=== PATIENT | male | born 1965 | race Caucasian/White ===

== ENCOUNTER 2020-12-25 11:44 | Emergency (ER) | payer MEDICARE, OTHER ==
[~2020-12-25] VITALS: Ht 188 cm; Wt 70.0 kg
[2020-12-25 11:53] VITALS: BP 112/76
[2020-12-25] MEDS ORDERED: HYDR-3972 PO (13:00)
[2020-12-25] MEDS ORDERED: ketorolac trometh. 30mg/ml inj. IM ONE (13:30)
--- NOTE | 2020-12-25 13:30 | NUR ---
Informed by Tech, pt. became verbally abusive when tech came in room to give crutch teaching.
== END 2020-12-25 13:46 | disposition home or self-care (01) ==
LOC: ER 11:45
DX: S93.401A Sprain of unspecified ligament of right ankle, initial encounter (principal); M79.671 Pain in right foot; M25.571 Pain in right ankle and joints of right foot; F15.90 Other stimulant use, unspecified, uncomplicated; Z59.00 Homelessness unspecified; Z56.0 Unemployment, unspecified; Z79.899 Other long term (current) drug therapy; X58.XXXA Exposure to other specified factors, initial encounter; Y93.89 Activity, other specified; Y92.89 Other specified places as the place of occurrence of the external cause; Y99.8 Other external cause status
CPT/HCPCS: 73610; 73630; 96372; 99284; J1885